=== PATIENT | female | born 1955 | race Caucasian/White ===

== ENCOUNTER 2017-10-12 11:33 | Day surgery (SDC) | payer BC ==
[~2017-10-12] VITALS: Ht 165.1 cm; Wt 74.4 kg
[~2017-10-12 11:33] MED LIST: AMIT10TA PO; ATEN100T PO; ATOR20TA PO; CELE200C PO; DULO60CA55 PO; GABA300C10 PO; GLUC1TAB27 PO; HYDR-3240 PO; HYDR25TA6 PO; LOSA50TA6 PO; PANT40TA5 PO; POTA20PA25 PO; TRAM50TA2 PO
[2017-10-12] MEDS ORDERED: ONDANSETRON ODT 8 MG PO ONE (12:00)
[2017-10-12] MEDS ORDERED: GABAPENTIN 300 MG CAPSULE PO ONE (12:00)
[2017-10-12] MEDS ORDERED: ACETAMINOPHEN 500 MG TABLET PO ONE (12:00)
[2017-10-12] MEDS ORDERED: LACTATED RINGERS 1,000 ML IV SCH (12:27)
[2017-10-12] MEDS ORDERED: OXYcodone IR 5MG TABLET PO ONE (12:30)
[2017-10-12] MEDS ORDERED: BUPIVACAINE/PF 0.5% ONE (12:38)
[2017-10-12] MEDS ORDERED: LIDOCAINE-MPF 2% ,5ML ONE (12:39)
[2017-10-12] MEDS ORDERED: EPINEPHRINE 1 MG/ML, 1ML ONE (12:39)
[2017-10-12 13:05] VITALS: BP 153/93
[2017-10-12] MEDS ORDERED: HYDROCORTISONE 100 MG INJ. ONE (13:07)
[2017-10-12] MEDS ORDERED: DEXAMETHASONE 4 MG/ML, 5ML ONE (13:07)
[2017-10-12] MEDS ORDERED: MIDAZOLAM 1 MG/ML, 2ML ONE (13:19)
[2017-10-12] MEDS ORDERED: FENTANYL PF 100 MCG/2ML ONE ×2 (13:19→16:01)
[2017-10-12] MEDS ORDERED: PROPOFOL 10 MG/ML, 20ML ONE (13:20)
[2017-10-12] MEDS ORDERED: DEXAMETHASONE 4 MG/ML, 1ML ONE (13:20)
[2017-10-12] MEDS ORDERED: CEFAZOLIN 1,000 MG ONE (13:20)
[2017-10-12] MEDS ORDERED: ONDANSETRON 2MG/ML, 2ML ONE (13:20)
[2017-10-12] MEDS ORDERED: MEPERIDINE/PF 25MG/0.5ML IVPush PRN (14:00)
[2017-10-12] MEDS ORDERED: PROMETHAZINE 12.5 MG SUPP PR PRN (14:00)
[2017-10-12] MEDS ORDERED: ONDANSETRON 2MG/ML, 2ML IVPush PRN (14:00)
[2017-10-12] MEDS ORDERED: ALBUTEROL/IPRATROPIUM 2.5MG/0.5MG, 3 ML NPPB PRN (14:00)
[2017-10-12] MEDS ORDERED: MIDAZOLAM 1 MG/ML, 2ML IV PRN (14:00)
[2017-10-12] MEDS ORDERED: PROMETHAZINE 25 MG/ML, 1ML IV PRN (14:00)
[2017-10-12] MEDS ORDERED: hydrALAzine 20 MG/ML, 1ML IV PRN (14:00)
[2017-10-12] MEDS ORDERED: DIAZEPAM 5 MG/ML, 2ML IVPush PRN (14:00)
[2017-10-12] MEDS ORDERED: morphine SULFATE 10 MG/ML, 1ML IV PRN (14:00)
[2017-10-12] MEDS ORDERED: LABETALOL 5MG/ML, 20ML IV PRN (14:00)
[2017-10-12] MEDS ORDERED: ALBUTEROL SULFATE 2.5 MG/3 ML NPPB PRN (14:00)
[2017-10-12] MEDS ORDERED: FENTANYL PF 100 MCG/2ML IV PRN (14:00)
[2017-10-12] MEDS ORDERED: OXYcodone 5 MG/5 ML ORAL.SOL UDC PO PRN (14:00)
[2017-10-12] MEDS ORDERED: LORazepam 2 MG/ML, 1ML IVPush PRN (14:00)
[2017-10-12] MEDS ORDERED: BUPIVACAINE/PF-EPI 0.5% 1:200K IM ONE (14:14)
[2017-10-12] MEDS ORDERED: MORPHINE SULFATE 4 MG/ML, 1ML ONE (15:54)
[2017-10-12] MEDS ORDERED: OXYcodone 5 MG/5 ML ORAL.SOL UDC ONE (15:54)
== END 2017-10-12 18:30 | disposition home or self-care (01) ==
LOC: OUT 11:33
PROVIDERS: ATTEND Orthopaedic Surgery
DX: G56.01 Carpal tunnel syndrome, right upper limb (principal); M65.321 Trigger finger, right index finger; M65.331 Trigger finger, right middle finger; M65.341 Trigger finger, right ring finger; M65.311 Trigger thumb, right thumb; M65.312 Trigger thumb, left thumb; M65.332 Trigger finger, left middle finger; M19.041 Primary osteoarthritis, right hand; I10 Essential (primary) hypertension; E78.4 Other hyperlipidemia; K21.9 Gastro-esophageal reflux disease without esophagitis; Z79.899 Other long term (current) drug therapy
CPT/HCPCS: 20550; 26055; 26850; 64721; 73140; 76000; 93005; J0171; J0690; J1100; J1720; J2250; J2270; J2405; J2704; J3010; J3490; J7120; Q0162